=== PATIENT | male | born 1970 | race Caucasian/White ===

== ENCOUNTER 2017-02-04 05:16 | Emergency (ER) | payer OTHER ==
[~2017-02-04] VITALS: Ht 175.3 cm; Wt 116.1 kg
--- NOTE | 2017-02-04 06:31 | PHYS DOC ---
Past History Past Medical History: High Cholesterol, Hypertension, Other Past Surgical History: Other Alcohol Use: None Social History Narrative: Hx of IV drug use, clean 10 yrs Adult General Chief Complaint Chief Complaint: FEVER HPI HPI Patient is a 46-year-old male brought from the correctional facility with the complaint of fever and chills. The patient and felt great yesterday, started feeling worse last night, then he developed an episode of shaking chills at about 11 PM. He had chills and sweats during the night and had his temperature checked earlier this morning and it was 103. He was sent here for evaluation. Patient states he has a frontal headache. Denies sore throat. He's had a little cough for about 2 days, he didn't think much of it. He is not short of air. No nausea or vomiting. He states for 11 months he has had about 3 loose stools a day, sometimes with a small amount of blood and sometimes with a larger amount of blood. This has not changed recently. He denies abdominal pain. Denies any abscess on his skin. He does have the slightly itchy rash on the right mid abdomen to these had since September. Patient states he takes Lasix daily, also states he's had reactive airway disease since he was a kid and takes breathing treatments. He does not feel like he needs a breathing treatment right now. He was not given anything for his fever. Review of Systems Review of Systems Constitutional: As in history of present illness Eyes: Denies change in visual acuity, redness, or eye pain [] HENT: He has had some nasal congestion for 1-2 days Respiratory: As in history of present illness Cardiovascular: Denies chest pain GI: Denies abdominal pain, nausea, vomiting,, stool as in history of present illness : Denies dysuria or hematuria [] Musculoskeletal: He has some chronic back pain issues Integument: As in history of present illness. He also complains of a area that bulges on his right lower leg that is worse when he stands up, for a few months , he was told it was a "cyst" Neurologic: Denies focal weakness or sensory changes [] Endocrine: Denies polyuria or polydipsia [] Current Medications Current Medications Current Medications Medications (Trade) Dose Ordered Sig/Tori Start Time Stop Time Status Last Admin Dose Admin Acetaminophen (Tylenol) 1,000 mg 1X ONCE 02/04/17 06:30 6/10/17 06:31 UNV Ibuprofen (Motrin) 800 mg 1X ONCE 02/04/17 06:30 02/04/17 06:31 UNV Physical Exam Physical Exam Constitutional: Well developed, well nourished, no acute distress, non-toxic appearance. Alert, mentating normally, no distress whatsoever, no cough or dyspnea. HENT: Normocephalic, atraumatic, bilateral external ears normal, oropharynx moist, no oral exudates, nose normal. Tonsils not enlarged with no erythema or exudates. Eyes: EOMI, conjunctiva normal, no discharge. [] Neck: Normal range of motion, supple, no stridor. [] Cardiovascular:Heart rate regular rhythm, no murmur [] Lungs & Thorax: Bilateral breath sounds clear to auscultation , no wheezes, no prolongation of expiratory phase Abdomen: Bowel sounds normal, soft, no tenderness, no masses, no pulsatile masses. [] Skin: Warm, dry, no erythema, no areas of abscess. There is a area of rash on the right mid abdominal wall approximately 10 x 10 cm that is nonspecific in appearance. It is mildly red, mildly palpable but not significantly raised, no vesicles or pustules, nonspecific in appearance. Back: No tenderness, no CVA tenderness. [] Extremities: No tenderness, no cyanosis, no clubbing, ROM intact, no edema. Right anterior lower leg about two thirds [address] the way down, when the patient flexes his ankle, has a "bulge" appear approximately 2 cm in diameter, that appears to be a small herniation through the muscle fascia. It is not red or tender, does not appear to be acute. Neurologic: Alert and oriented X 3, normal motor function, normal sensory function, no focal deficits noted. [] Psychologic: Affect normal, judgement normal, mood normal. [] Current Patient Data Vital Signs Vital Signs Date Time Temp Pulse Resp B/P (MAP) Pulse Ox O2 Delivery O2 Flow Rate FiO2 02/04/17 05:20 99.1 104 20 96 Room Air EKG EKG [] Radiology/Procedures Radiology/Procedures Two-view chest x-ray read by me. No acute cardiopulmonary abnormality. [] Course & Med Decision Making Course & Med Decision Making Pertinent Labs and Imaging studies reviewed. (See chart for details) 46-year-old man in good health presents from the correctional facility with fever. Really no localizing signs or symptoms elicited on exam and history. I discussed with the patient that we will treat his fever and get a chest x-ray, urinalysis, flu swab to look for potential sources of fever. He looks very nontoxic and discussed with him that it is likely viral. Chest x-ray clear, flu swab negative, urinalysis negative. Patient rested comfortably watching TV in the ED. I discussed with him treatment of fever as likely viral. He also asked for something for the rash on his abdominal wall that he's had since September, we will try an antifungal. [] Dragon Disclaimer Dragon Disclaimer This chart was dictated in whole or in part using Voice Recognition software in a busy, high-work load, and often noisy Emergency Department environment. It may contain unintended and wholly unrecognized errors or omissions. Departure Departure: Impression: Primary Impression: Fever and chills Additional Impressions: Acute viral syndrome Rash and nonspecific skin eruption Referrals: FELICIANO DOSHI MSN, RACE STARTER (PCP) Patient Instructions: Fever, Adult Additional Instructions: As we discussed, we did not find a cause for your fever, and I suspect it is likely from a virus. Some fevers from viruses last a day, some last a week. It' s impossible to predict. Rest, drink plenty of fluids. For fever, ibuprofen 800 mg every 8 hours. Acetaminophen 1000 mg every 6-8 hours. These may be taken at the same time, they do not interact with each other. You had a dose of both medications about 6:30 this morning. For rash on the abdominal wall, we will try a medicine for skin fungus. Scripts Clotrimazole/Betamethasone Dip (CLOTRIMAZOLE-BETAMETHASONE CRM) 15 Gm Cream..g. 1 JEANA TP BID, #30 GM 1 Refill Prov: KAMRAN RIVERA MD 02/04/17 Problem Qualifiers KAMRAN RIVERA MD Feb 04, 2017 06:31
[2017-02-04 06:54] VITALS: BP 157/86
[2017-02-04 06:58] LABS: INFLUENZA A PATIENT NEGATIVE (NEGATIVE); INFLUENZA B PATIENT NEGATIVE (NEGATIVE)
[2017-02-04] MEDS ORDERED: ACETAMINOPHEN 500 MG TABLET PO ONE (07:00)
[2017-02-04] MEDS ORDERED: IBUPROFEN 800 MG TABLET. PO ONE (07:00)
[2017-02-04 07:40] LABS: BILIRUBIN,URINE NEG (NEG); CLARITY,URINE CLEAR; COLOR,URINE YELLOW; GLUCOSE,URINE NEG (NEG)
[2017-02-04 07:41] LABS: BACTERIA,URINE 0 /HPF (0-FEW); NITRITE,URINE NEG (NEG); RBC,URINE 0 /HPF (0-2); SQUAMOUS EPITHELIAL CELL,UR OCC /LPF; UROBILINOGEN,URINE 0.2 mg/dL (0.2 mg/dL); WBC,URINE 0 /HPF (0-4)
--- NOTE | 2017-02-04 07:48 | RAD ---
Indication fever and cough. PA and lateral views of the chest were obtained. No prior imaging is available. The heart, pulmonary vessels and mediastinum appear normal. The lungs are clear. There is widening and offset at the right AC joint. This likely reflects an old injury. Clinical correlation advised IMPRESSION: No acute or focal process seen in the chest
[2017-02-04] MEDS ORDERED: CLOT15CR5 TP (08:03)
== END 2017-02-04 08:07 | disposition home or self-care (01) ==
LOC: ER 05:16
DX: B34.9 Viral infection, unspecified (principal); R21 Rash and other nonspecific skin eruption; E78.00 Pure hypercholesterolemia, unspecified; I10 Essential (primary) hypertension
CPT/HCPCS: 71020; 81001; 87804; 99285-25

== ENCOUNTER 2019-07-03 16:13 | Emergency (ER) | payer OTHER ==
[~2019-07-03] VITALS: Ht 172.7 cm; Wt 116.0 kg
[~2019-07-03 16:13] MED LIST: CLOT15CR5 TP
[2019-07-03 16:15] VITALS: BP 147/97
--- NOTE | 2019-07-03 16:40 | PHYS DOC ---
Past History Past Medical History: Asthma, High Cholesterol, Hypertension, Prostatitis, Other Past Surgical History: Other Alcohol Use: None Drug Use: None Adult General Chief Complaint Chief Complaint: CELLULITIS HPI HPI patient is a 48-year-old male who presents to the emergency department for evaluation. He states over the past 2 days, he has had some pain in his right leg, on the anterior and medial aspect of his leg as well as the anterior/lateral aspect of his leg, and has developed some erythema and discomfort which appears to be some lymphangitic streaking extending from the medial aspect of his knee, proximal to his distal to mid thigh. He states he did fall playing handball a few days ago, and sustained a superficial scrape/abrasion on the right lateral calf, and also had a tattoo on his posterior calf about 3 weeks ago. He did just take a bus ride from [place] back up to this area, where he was just released from alf. He takes a fluid pill as he has had problems with edema in his legs in the past, but is uncertain of the vein. He denies any shortness of breath, pleuritic pain, fevers, or chills. Palpation of the affected area worsens his pain. There are no alleviating factors to his symptoms. Patient's tetanus immunization is up-to-date. Review of Systems Review of Systems Constitutional: Denies fever or chills [] Eyes: Denies change in visual acuity, redness, or eye pain [] HENT: Denies nasal congestion or sore throat [] Respiratory: Denies cough or shortness of breath [] Cardiovascular:The patient denies any shortness of breath, chest pain, palpitations, or orthopnea[] GI: Denies abdominal pain, nausea, vomiting, bloody stools or diarrhea [] : Denies dysuria or hematuria [] Musculoskeletal: Denies back pain or joint pain [] Integument: Denies rash or skin lesions [] Neurologic: Denies headache, focal weakness or sensory changes [] Endocrine: Denies polyuria or polydipsia [] All other systems were reviewed and found to be within normal limits, except as documented in this note. Allergies Allergies Allergies Coded Allergies Type Severity Reaction Last Updated Verified No Known Drug Allergies 02/04/17 No Physical Exam Physical Exam PHYSICAL EXAM: CONSTITUTIONAL: Well developed, well nourished HEAD: normocephalic, atraumatic EENT: PERRL, EOMI. Conjunctivae normal color, sclerae non-icteric; moist mucous membranes. NECK: Supple, non-tender; no meningismus. LUNGS: Lungs CTA, breathing even and unlabored. Normal air movement. HEART: Regular rate and rhythm, no murmur CHEST: No deformity; non-tender ABDOMEN: The abdomen is soft, and non-tender, no masses or bruits. EXTREM: Normal ROM; no deformity, no calf tenderness. Normal pulses palpable in all extremities. There is 1+ left-sided pedal edema, and 2+ right lower extremity pedal edema. There is a superficial abrasion on the lateral aspect of the right lower leg just distal to the knee, there is some warmth and erythema in this area, with some tenderness to palpation along the medial distal thigh, and proximal lower leg, where the patient reports lymphangitic streaking is present. There is no definite palpable cord. NEURO: Alert; normal speech and cognition; CN's grossly intact; strength grossly intact without focal deficit. BACK: No CVA TTP. Current Patient Data Vital Signs Vital Signs Date Time Temp Pulse Resp B/P (MAP) Pulse Ox O2 Delivery O2 Flow Rate FiO2 07/03/19 16:15 97.7 87 20 97 Room Air 07/03/19 16:13 147/97 (114) Lab Results Laboratory Tests Test 07/03/19 18:20 White Blood Count 6.8 x10^3/uL Red Blood Count 4.92 x10^6/uL Hemoglobin 14.2 g/dL Hematocrit 42.4 % Mean Corpuscular Volume 86 fL Mean Corpuscular Hemoglobin 29 pg Mean Corpuscular Hemoglobin Concent 34 g/dL Red Cell Distribution Width 13.4 % Platelet Count 262 x10^3/uL Neutrophils (%) (Auto) 51 % Lymphocytes (%) (Auto) 31 % Monocytes (%) (Auto) 14 % Eosinophils (%) (Auto) 3 % Basophils (%) (Auto) 1 % Neutrophils # (Auto) 3.5 x10^3uL Lymphocytes # (Auto) 2.1 x10^3/uL Monocytes # (Auto) 1.0 x10^3/uL Eosinophils # (Auto) 0.2 x10^3/uL Basophils # (Auto) 0.1 x10^3/uL Sodium Level 140 mmol/L Potassium Level 3.4 mmol/L Chloride Level 100 mmol/L Carbon Dioxide Level 27 mmol/L Anion Gap 13 Blood Urea Nitrogen 20 mg/dL Creatinine 1.1 mg/dL Estimated GFR (Cockcroft-Gault) 72.1 BUN/Creatinine Ratio 18 Glucose Level 97 mg/dL Lactic Acid Level 0.7 mmol/L Calcium Level 9.3 mg/dL Total Bilirubin 0.5 mg/dL Aspartate Amino Transf (AST/SGOT) 28 U/L Alanine Aminotransferase (ALT/SGPT) 47 U/L Alkaline Phosphatase 54 U/L Troponin I Quantitative < 0.017 ng/mL WM-Ime-I-Type Natriuretic Peptide 12 pg/mL Total Protein 7.6 g/dL Albumin 4.0 g/dL Albumin/Globulin Ratio 1.1 Current Medications Medications (Trade) Dose Ordered Sig/Tori Route PRN Reason Start Time Stop Time Status Last Admin Dose Admin Doxycycline Hyclate (Vibra-Tab) 100 mg 1X ONCE PO 07/03/19 19:00 07/03/19 19:01 DC 07/03/19 18:59 Doxycycline Hyclate (Vibra-Tab) 100 mg STK-MED ONCE .ROUTE 07/03/19 18:56 07/03/19 18:58 DC EKG EKG Normal sinus rhythm with a normal rate, normal axis, normal intervals, there are no acute ischemic ST/T changes.[] Radiology/Procedures Radiology/Procedures PROCEDURE: VENOUS LOWER EXTREMITY RIGHT Right lower extremity venous Doppler dated 07/03/2019. No comparison available. Clinical data indication: Pain and swelling. FINDINGS: Grayscale, color-flow and spectral waveform analysis performed to include the deep venous system of the right lower extremity. There is normal compressibility, phasicity and augmentation of flow throughout. No filling defects are seen. IMPRESSION:. No evidence of right lower extremity deep vein thrombosis.[] Course & Med Decision Making Course & Med Decision Making Pertinent Labs and Imaging studies reviewed. (See chart for details) []Patient remains stable. I discussed test results, the need for close follow- up, and return precautions. Dragon Disclaimer Dragon Disclaimer This electronic medical record was generated, in whole or in part, using a voice recognition dictation system. Departure Departure: Impression: Primary Impression: Cellulitis Disposition: HOME, SELF-CARE Condition: STABLE Referrals: FELICIANO DOSHI MSN, MORTGAGE LOAN ORIGINATOR (PCP) Patient Instructions: Cellulitis Scripts Doxycycline Hyclate (DOXYCYCLINE HYCLATE) 100 Mg Capsule 1 CAP PO BID for -, #20 CAP Prov: AMINA GONZALEZ MD 07/03/19 AMINA GONZALEZ MD Jul 03, 2019 16:40
--- NOTE | 2019-07-03 17:09 | RAD ---
Right lower extremity venous Doppler dated 07/03/2019. No comparison available. Clinical data indication: Pain and swelling. FINDINGS: Grayscale, color-flow and spectral waveform analysis performed to include the deep venous system of the right lower extremity. There is normal compressibility, phasicity and augmentation of flow throughout. No filling defects are seen. IMPRESSION:. No evidence of right lower extremity deep vein thrombosis. Electronically signed by: Ramakrishna Hou MD (07/03/2019 5:06 PM) [facility]
--- NOTE | 2019-07-03 17:28 | EKG ---
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
[2019-07-03] MEDS ORDERED: DOXY100C2 PO (18:42)
[2019-07-03] MEDS ORDERED: DOXYCYCLINE HYCLATE 100 MG TABLET ONE (18:56)
[2019-07-03 18:59] LABS: BASO # 0.1 x10^3/uL (0.0-0.2); BASO % 1 % (0-3); EOS # 0.2 x10^3/uL (0.0-0.7); EOS % 3 % (0-3); HEMATOCRIT 42.4 % (39.0-53.0); HEMOGLOBIN 14.2 g/dL (13.0-17.5); LYMPH # 2.1 x10^3/uL (1.0-4.8); LYMPH % 31 % (24-48); MEAN CORPUSCULAR HEMOGLOBIN 29 pg (25-35); MEAN CORPUSCULAR HGB CONC 34 g/dL (31-37); MEAN CORPUSCULAR VOLUME 86 fL (79-100); MONO % 14 % (0-9); NEUT # 3.5 x10^3uL (1.8-7.7); NEUT % 51 % (31-73); PLATELET COUNT 262 x10^3/uL (140-400); RED BLOOD COUNT 4.92 x10^6/uL (4.30-5.70); RED CELL DISTRIBUTION WIDTH 13.4 % (11.5-14.5); WHITE BLOOD COUNT 6.8 x10^3/uL (4.0-11.0)
[2019-07-03] MEDS ORDERED: DOXYCYCLINE HYCLATE 100 MG TABLET PO ONE (19:00)
[2019-07-03 19:20] LABS: ALBUMIN/GLOBULIN RATIO 1.1 (1.0-1.7); CALCIUM 9.3 mg/dL (8.5-10.1); CREATININE 1.1 mg/dL (0.7-1.3); GFR 72.1; POTASSIUM 3.4 mmol/L (3.5-5.1); TOTAL BILIRUBIN 0.5 mg/dL (0.2-1.0); TOTAL PROTEIN 7.6 g/dL (6.4-8.2)
== END 2019-07-03 19:27 | disposition home or self-care (01) ==
LOC: ER 16:13
DX: S80.812A Abrasion, left lower leg, initial encounter (principal); L03.115 Cellulitis of right lower limb; J45.909 Unspecified asthma, uncomplicated; E78.00 Pure hypercholesterolemia, unspecified; I10 Essential (primary) hypertension; W18.39XA Other fall on same level, initial encounter; Y93.73 Activity, racquet and hand sports; Y92.89 Other specified places as the place of occurrence of the external cause; Y99.8 Other external cause status
CPT/HCPCS: 36415; 80053; 83605; 83880; 84484; 85025; 87040; 93005; 93971; 99285-25

== ENCOUNTER 2019-07-16 22:50 | Emergency (ER) | payer OTHER ==
[~2019-07-16] VITALS: Ht 172.7 cm; Wt 116.0 kg
[~2019-07-16 22:50] MED LIST changes: +DOXY100C2 PO
[2019-07-16] MEDS ORDERED: IPRATRPIUM/ALBUTEROL 0.5/2.5MG 3 ML NEBU. NEB ONE (23:00)
[2019-07-16] MEDS ORDERED: ALBUTEROL SULFATE 8GM INHALER. ONE (23:10)
[2019-07-16] MEDS ORDERED: ALBUTEROL SULFATE 8GM INHALER. INH ONE (23:15)
[2019-07-16 23:30] VITALS: BP 142/82
--- NOTE | 2019-07-17 06:58 | PHYS DOC ---
Past History Past Medical History: Asthma, High Cholesterol, Hypertension, Prostatitis, Other Past Surgical History: Other Alcohol Use: None Drug Use: None Adult General Chief Complaint Chief Complaint: SHORTNESS OF BREATH HPI HPI Patient is a [48-year-old male with history of asthma who presents with asthma exacerbation. Patient recently released from senior care and met with a primary care physician this morning. He is given prescriptions for albuterol will not receive them and him male for another week. Patient reports chest tightness and wheezing. He denies cough, sore throat, fever chills, nausea vomiting or sweats. Patient is a current smoker.[] Review of Systems Review of Systems Review symptoms as per history of present illness. All other review symptoms are negative. All other systems were reviewed and found to be within normal limits, except as documented in this note. Current Medications Current Medications Current Medications Medications (Trade) Dose Ordered Sig/Tori Start Time Stop Time Status Last Admin Dose Admin Albuterol Sulfate (Ventolin Hfa Inhaler) 60 puff STK-MED ONCE 07/16/19 23:10 07/16/19 23:53 DC Albuterol/ Ipratropium (Duoneb) 3 ml 1X ONCE 07/16/19 23:00 07/16/19 23:02 DC 07/16/19 23:00 3 ML Allergies Allergies Allergies Coded Allergies Type Severity Reaction Last Updated Verified No Known Drug Allergies 02/04/17 No Physical Exam Physical Exam Constitutional: Well developed, well nourished, no acute distress, non-toxic appearance. [] HENT: Normocephalic, atraumatic, bilateral external ears normal, oropharynx moist, no oral exudates, nose normal. [] Eyes: PERRLA, EOMI, conjunctiva normal, no discharge. [] Neck: Normal range of motion, no tenderness, supple, no stridor. [] Cardiovascular:Heart rate regular rhythm, no murmur [] Lungs & Thorax: Patient's nonlabored, mildly diminished bilaterally with faint inspiratory and expiratory wheezes.[] Abdomen: Bowel sounds normal, soft, no tenderness, no masses, no pulsatile masses. [] Skin: Warm, dry, no erythema, no rash. [] Back: No tenderness, no CVA tenderness. [] Extremities: No tenderness, no cyanosis, no clubbing, ROM intact, no edema. [] Neurologic: Alert and oriented X 3, normal motor function, normal sensory function, no focal deficits noted. [] Psychologic: Affect normal, judgement normal, mood normal. [] Current Patient Data Vital Signs Vital Signs Date Time Temp Pulse Resp B/P (MAP) Pulse Ox O2 Delivery O2 Flow Rate FiO2 07/16/19 23:30 92 18 142/82 (102) 95 Room Air EKG EKG [] Radiology/Procedures Radiology/Procedures [] Course & Med Decision Making Course & Med Decision Making Pertinent Labs and Imaging studies reviewed. (See chart for details) [Acute asthma exacerbation, mild intermittent. Symptoms improved with treatments. Inhaler use demonstrated and provided to patient prior to discharge. Return precautions reviewed.] Dragon Disclaimer Dragon Disclaimer This electronic medical record was generated, in whole or in part, using a voice recognition dictation system. Departure Departure: Impression: Primary Impression: Asthma attack Additional Impression: Dyspnea Disposition: HOME/RESIDENCE PRIOR TO ADM Condition: STABLE Patient Instructions: Asthma, Acute Bronchospasm Additional Instructions: Please take medications as directed and follow-up with your PCP. Problem Qualifiers TANISHA BECERRA DO Jul 17, 2019 06:58
== END 2019-07-16 23:43 | disposition home or self-care (01) ==
LOC: ER 22:50
DX: J45.901 Unspecified asthma with (acute) exacerbation (principal); E78.00 Pure hypercholesterolemia, unspecified; I10 Essential (primary) hypertension
CPT/HCPCS: 94640; 99284; J7613; J7620; 94664

== ENCOUNTER 2019-07-22 21:31 | Emergency (ER) | payer OTHER ==
[~2019-07-22] VITALS: Ht 172.7 cm; Wt 116.0 kg
[2019-07-22] MEDS ORDERED: ALBUTEROL SULFATE 2.5 MG/3 ML NEBU. ONE (21:53)
--- NOTE | 2019-07-22 21:56 | PHYS DOC ---
Past History Past Medical History: Asthma, High Cholesterol, Hypertension, Prostatitis, Other Past Surgical History: Other Alcohol Use: None Drug Use: None Adult General Chief Complaint Chief Complaint: ASTHMA HPI HPI 49-year-old male presents with shortness of breath. Patient has a history of reactive airway disease. He was seen in this emergency room about one week ago for asthma exacerbation. He was discharged on albuterol inhaler. The patient has continued to have shortness of breath with wheezing. The last couple of days it has gotten worse and he is out of his inhaler. He wasn't sure what else to do so he came to the emergency room. Patient denies chest pain, fever, or chills. Review of Systems Review of Systems Constitutional: Denies fever or chills [] Eyes: Denies change in visual acuity, redness, or eye pain [] HENT: Denies nasal congestion or sore throat [] Respiratory: Cough with shortness of breath [] Cardiovascular: No additional information not addressed in HPI [] GI: Denies abdominal pain, nausea, vomiting, bloody stools or diarrhea [] : Denies dysuria or hematuria [] Musculoskeletal: Denies back pain or joint pain [] Integument: Denies rash or skin lesions [] Neurologic: Denies headache, focal weakness or sensory changes [] Endocrine: Denies polyuria or polydipsia [] All other systems were reviewed and found to be within normal limits, except as documented in this note. Current Medications Current Medications Current Medications Medications (Trade) Dose Ordered Sig/Tori Start Time Stop Time Status Last Admin Dose Admin Albuterol Sulfate (Ventolin) 2.5 mg STK-MED ONCE 07/22/19 21:53 07/22/19 21:53 DC Allergies Allergies Allergies Coded Allergies Type Severity Reaction Last Updated Verified No Known Drug Allergies 02/04/17 No Physical Exam Physical Exam Constitutional: Well developed, obese, well nourished, no acute distress, non- toxic appearance. [] HENT: Normocephalic, atraumatic, bilateral external ears normal, oropharynx moist, no oral exudates, nose normal. [] Eyes: PERRLA, EOMI, conjunctiva normal, no discharge. [] Neck: Normal range of motion, no tenderness, supple, no stridor. [] Cardiovascular:Heart rate regular rhythm, no murmur [] Lungs & Thorax: Bilateral expiratory wheezing throughout[] Abdomen: Bowel sounds normal, soft, no tenderness, no masses, no pulsatile masses. [] Skin: Warm, dry, no erythema, no rash. [] Back: No tenderness, no CVA tenderness. [] Extremities: No tenderness, no cyanosis, no clubbing, ROM intact, no edema. [] Neurologic: Alert and oriented X 3, normal motor function, normal sensory function, no focal deficits noted. [] Psychologic: Affect normal, judgement normal, mood normal. [] EKG EKG [] Radiology/Procedures Radiology/Procedures [] Course & Med Decision Making Course & Med Decision Making Pertinent Labs and Imaging studies reviewed. (See chart for details) The patient was given one hour albuterol nebulizer treatment. He was also given 60 mg of prednisone as he preferred this to Solu-Medrol. His wheezing is improved. I will discharge the patient with an additional albuterol inhaler, a prescription for nebulizer, prescription for MDI, prescription for 3 more days of prednisone 60 mg daily. He is stable for discharge at this time. [] Dragon Disclaimer Dragon Disclaimer This electronic medical record was generated, in whole or in part, using a voice recognition dictation system. Departure Departure: Impression: Primary Impression: Asthma attack Disposition: 01 HOME, SELF-CARE Condition: IMPROVED Referrals: FELICIANO DOSHI MSN, HAMMER SHOP SUPERVISOR (PCP) Patient Instructions: Asthma Prevention-Brief, Asthma, Adult, [id number] Scripts Prednisone (PREDNISONE) 20 Mg Tablet 3 TAB PO DAILY for asthma for 3 Days, #9 TAB Prov: TANISHA SOTO DO 07/22/19 Albuterol Sulfate (PROAIR HFA INHALER) 8.5 Gm Hfa.aer.ad 2 PUFF IH PRN Q4-6HRS PRN for wheezing, #1 INHALER 0 Refills Generic substitution of albuterol sulfate MDI is authorized. Prov: TANISHA SOTO DO 07/22/19 Albuterol Sulfate (ALBUTEROL SULFATE CONC NEB SOLN) 2.5 Mg/0.5 Ml Vial.neb 1 VIAL NEB Q4HRS PRN for WHEEZING, #60 VIAL 1 Refill Please also provide a nebulizer for the patient. Prov: TANISHA SOTO DO 07/22/19 Problem Qualifiers Primary Impression: Asthma attack Asthma severity: mild Asthma persistence: intermittent Qualified Codes: J45.21 - Mild intermittent asthma with (acute) exacerbation TANISHA SOTO DO Jul 22, 2019 21:56
[2019-07-22] MEDS ORDERED: ALBUTEROL SULFATE 2.5 MG/3 ML NEBU. CONT NEB ONE (22:00)
[2019-07-22] MEDS ORDERED: methylPREDNISolone SOD SUCC PF 125 MG/2 ML VIAL. IV ONE (22:00)
[2019-07-22] MEDS ORDERED: ALBUTEROL SULFATE 8GM INHALER. INH ONE (22:00)
[2019-07-22] MEDS ORDERED: predniSONE 20 MG TABLET PO ONE (22:15)
[2019-07-22] MEDS ORDERED: ALBU2.5V14 NEB (22:36)
[2019-07-22] MEDS ORDERED: PRED20TA PO (22:36)
[2019-07-22] MEDS ORDERED: ALBU2.5V8 IH (22:36)
[2019-07-22 23:01] VITALS: BP 132/88
--- NOTE | 2019-07-23 06:47 | RAD ---
INDICATION: PT SAYS HE HAS CHRONIC AIRWAY DISEASE, shortness of breath COMPARISON: February 04, 2017 FINDINGS: 2 view of chest obtained. Mildly coarsened lung markings are again seen bilaterally. Postoperative changes to the right distal clavicle. Cardiac silhouette is nonenlarged. Degenerative changes of the spine. IMPRESSION: * No definite new region of focal airspace consolidation. Electronically signed by: Binh Orellana MD (07/23/2019 6:44 AM) [facility]
== END 2019-07-22 23:04 | disposition home or self-care (01) ==
LOC: ER 21:31
DX: J45.21 Mild intermittent asthma with (acute) exacerbation (principal); E78.00 Pure hypercholesterolemia, unspecified; I10 Essential (primary) hypertension
CPT/HCPCS: 71046; 94640; 94644; 99285; J7512; J7613; 94664

== ENCOUNTER 2019-07-24 04:09 | Emergency (ER) | payer OTHER ==
[~2019-07-24] VITALS: Ht 172.7 cm; Wt 116.0 kg
[~2019-07-24 04:09] MED LIST changes: +ALBU2.5V14 NEB; +ALBU2.5V8 IH; +PRED20TA PO
[2019-07-24] MEDS ORDERED: IPRATRPIUM/ALBUTEROL 0.5/2.5MG 3 ML NEBU. ONE (04:15)
[2019-07-24] MEDS ORDERED: ALBUTEROL SULFATE 2.5 MG/3 ML NEBU. ONE (04:17)
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
[2019-07-24 05:00] VITALS: BP 125/78
[2019-07-24] MEDS ORDERED: IPRATRPIUM/ALBUTEROL 0.5/2.5MG 3 ML NEBU. NEB ONE ×2 (05:00)
[2019-07-24] MEDS ORDERED: methylPREDNISolone SOD SUCC PF 125 MG/2 ML VIAL. IM ONE (05:00)
[2019-07-24] MEDS ORDERED: ALBUTEROL SULFATE 2.5 MG/3 ML NEBU. NEB ONE (05:00)
[2019-07-24] MEDS ORDERED: predniSONE 20 MG TABLET PO ONE (05:30)
[2019-07-24] MEDS ORDERED: ALBUTEROL SULFATE 8GM INHALER. INH ONE (05:30)
== END 2019-07-24 05:24 | disposition home or self-care (01) ==
LOC: ER 04:09
DX: J45.901 Unspecified asthma with (acute) exacerbation (principal); F41.9 Anxiety disorder, unspecified; E78.00 Pure hypercholesterolemia, unspecified; I10 Essential (primary) hypertension; F43.10 Post-traumatic stress disorder, unspecified
CPT/HCPCS: 94640; 96372; 99284; J2930; J7512; J7613; J7620

== ENCOUNTER 2019-08-13 01:05 | Emergency (ER) | payer OTHER ==
[~2019-08-13] VITALS: Ht 172.7 cm; Wt 116.0 kg
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
[2019-08-13] MEDS ORDERED: IPRA0.2S5 NEB (02:15)
[2019-08-13] MEDS ORDERED: PROM118S9 PO (02:15)
[2019-08-13] MEDS ORDERED: AZIT250T6 PO (02:15)
[2019-08-13] MEDS ORDERED: ALBUTEROL SULFATE 8GM INHALER. INH ONE (02:30)
[2019-08-13 02:50] VITALS: BP 129/71
--- NOTE | 2019-08-13 04:17 | RAD ---
CHEST PA LATERAL INDICATION: Cough, wheezing, congestion. COMPARISON STUDY: 07/22/2019. FINDINGS: Lungs: Normal lung volume. No pulmonary mass or consolidation. The tracheobronchial tree and hilar structures are normal. Pleura: No pleural effusion or pneumothorax. Heart and Mediastinum: The cardiomediastinal silhouette is normal. The great vessels of the thorax are normal. IMPRESSION: No consolidation. Electronically signed by: Fredy Ellington MD (08/13/2019 4:14 AM) [facility]
== END 2019-08-13 02:50 | disposition home or self-care (01) ==
LOC: ER 01:05
DX: J45.21 Mild intermittent asthma with (acute) exacerbation (principal); F41.9 Anxiety disorder, unspecified; E78.00 Pure hypercholesterolemia, unspecified; I10 Essential (primary) hypertension; F43.10 Post-traumatic stress disorder, unspecified
CPT/HCPCS: 71046; 94640; 99284; J7613; 94664

== ENCOUNTER 2019-08-26 23:15 | Inpatient (IN) | payer OTHER ==
[~2019-08-26] VITALS: Ht 172.7 cm; Wt 123.0 kg
[~2019-08-26 23:15] MED LIST changes: +AZIT250T6 PO; +IPRA0.2S5 NEB; +PROM118S9 PO
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
[2019-08-26] MEDS ORDERED: IPRATRPIUM/ALBUTEROL 0.5/2.5MG 3 ML NEBU. NEB ONE (23:30)
[2019-08-26] MEDS ORDERED: ALBUTEROL SULFATE 8GM INHALER. INH ONE (23:30)
[2019-08-26] MEDS ORDERED: IV RINGERS SOLUTION,LACTATED 1,000 ML IV SCH (23:55)
[2019-08-26] MEDS ORDERED: predniSONE 20 MG TABLET PO ONE (23:55)
[2019-08-27] MEDS ORDERED: ASPIRIN 81 MG TAB.CHEW PO ONE
[2019-08-27] MEDS ORDERED: ENOXAPARIN ** NOTE DOSE ** SYRINGE SQ ONE
[2019-08-27] MEDS ORDERED: CONTRAST GIVEN MC PRN (00:15)
[2019-08-27] MEDS ORDERED: IOHEXOL 350 MG/ML 100 ML VIAL. IV ONE (00:15)
[2019-08-27] MEDS ORDERED: KETOROLAC 30 MG/ML VIAL. IVP ONE (00:15)
--- NOTE | 2019-08-27 00:24 | EKG ---
[address] [address] Test Date: 2019-08-26 Test Time: 23:36:33 Pat Name: OCTAVIA PEREZ Department: Room: Gender: M Watch Inspector: : 1970 Requested By: WINNIE SONI Order Number: [id number] Reading MD: Measurements Intervals [place] Rate: 91 P: 59 MD: 134 QRS: 44 QRSD: 96 T: 42 QT: 346 QTc: 427 Interpretive Statements SINUS RHYTHM QRS(T) CONTOUR ABNORMALITY CONSISTENT WITH ANTEROSEPTAL INFARCT AGE UNDETERMINED ABNORMAL ECG RI6.01 No previous ECG available for comparison
[2019-08-27 01:20] LABS: BASO # 0.1 x10^3/uL (0.0-0.2); BASO % 1 % (0-3); EOS # 0.2 x10^3/uL (0.0-0.7); EOS % 2 % (0-3); HEMATOCRIT 38.6 % (39.0-53.0); HEMOGLOBIN 13.4 g/dL (13.0-17.5); LYMPH # 2.1 x10^3/uL (1.0-4.8); LYMPH % 20 % (24-48); MEAN CORPUSCULAR HEMOGLOBIN 29 pg (25-35); MEAN CORPUSCULAR HGB CONC 35 g/dL (31-37); MEAN CORPUSCULAR VOLUME 84 fL (79-100); MONO # 0.9 x10^3/uL (0.0-1.1); MONO % 8 % (0-9); NEUT # 7.5 x10^3uL (1.8-7.7); NEUT % 70 % (31-73); PLATELET COUNT 266 x10^3/uL (140-400); RED BLOOD COUNT 4.59 x10^6/uL (4.30-5.70); RED CELL DISTRIBUTION WIDTH 14.1 % (11.5-14.5); WHITE BLOOD COUNT 10.7 x10^3/uL (4.0-11.0)
[2019-08-27 01:30] LABS: CALCIUM 8.3 mg/dL (8.5-10.1); CREATININE 0.8 mg/dL (0.7-1.3); GFR 103.6; POTASSIUM 3.2 mmol/L (3.5-5.1)
[2019-08-27 01:45] LABS: ALBUMIN 3.1 g/dL (3.4-5.0); DIRECT BILIRUBIN 0.1 mg/dL (0.0-0.2); MAGNESIUM 1.9 mg/dL (1.8-2.4); TOTAL BILIRUBIN 0.3 mg/dL (0.2-1.0); TOTAL PROTEIN 6.8 g/dL (6.4-8.2)
--- NOTE | 2019-08-27 01:54 | RAD ---
Study: CT CHEST WITH CONTRAST - PULMONARY ANGIOGRAM History: Dyspnea. Chest pain. Comparison: None. Technique: Helical CT of the chest performed after the administration of 100 cc Omnipaque 350 intravenous contrast and timed for angiographic evaluation of the pulmonary arteries per PE protocol. Coronal and sagittal 3D MIP reformations were obtained. One or more of the following individualized dose reduction techniques were utilized for this examination: 1. Automated exposure control 2. Adjustment of the mA and/or kV according to patient size 3. Use of iterative reconstruction technique. Findings: No pulmonary embolism is identified. Normal aortic caliber. Patent great vessel origins. No calcific coronary artery disease is identified. No pericardial effusion or hiatal hernia. A few minimally prominent hilar lymph nodes are noted but do not meet pathologic criteria based on size. Trace bilateral pleural effusions. Apical predominant scattered groundglass opacities but also seen to a lesser degree within the upper aspect of both lower lobes as well as involving the right middle lobe and lingula. Scattered small nodules present as well. Clustered cystic foci seen within the upper aspect of the right lower lobe and lower aspect of the right upper lobe. The partially imaged spleen is prominent in size. No other abnormality seen at the upper abdomen. IMPRESSION: 1. No pulmonary embolism is identified or CT findings of right heart strain. 2. Scattered groundglass opacities and a few small nodules with an apical predominance. Scattered clustered cystic foci also seen within the right upper and lower lobes. The opacities are nonspecific but could represent an atypical infectious process in the appropriate clinical setting. Given the presence of mild nodularity, recommend follow-up CT such as in 3 months to document improvement. 3. Trace bilateral pleural effusions. 4. Nonspecific prominence of the partially imaged spleen. No pathologically enlarged lymph nodes seen throughout the imaged body. Electronically signed by: ZBIGNIEW LARES MD (08/27/2019 1:51 AM) [facility]
[2019-08-27 02:28] LABS: INFLUENZA A PATIENT NEGATIVE (NEGATIVE); INFLUENZA B PATIENT NEGATIVE (NEGATIVE)
[2019-08-27] MEDS ORDERED: AZITHROMYCIN 250 MG TABLET. PO ONE (02:30)
[2019-08-27] MEDS ORDERED: ONDANSETRON PF 4 MG/2 ML VIAL. IV PRN (02:45)
[2019-08-27] MEDS ORDERED: ACETAMINOPHEN 325 MG TABLET PO PRN (02:45)
[2019-08-27] MEDS ORDERED: IV NORMAL SALINE 50ML 50 ML ONE (03:09)
[2019-08-27] MEDS ORDERED: cefTRIAXone SODIUM 1 GM VIAL ONE (03:09)
[2019-08-27 03:36] VITALS: BP 148/96
--- NOTE | 2019-08-27 03:42 | NUR ---
The patient, OCTAVIA PEREZ, 49 y/o, M admitted by YAHAIRA VALENTINE MD, was given written information regarding hospital policies, unit procedures and contact persons. Valuables were checked and left with patient, per his request. PT was able to ambulate from EMS gurney to bed. Pt changed into a gown and VSS. Upon assessment pt is irritated with staff, and short. Pt states "I will be leaving in the morning, I have never been to a hospital like this." Pt changed into a gown and nurse at bedside obtaining health information at this time. Will CTM.
[2019-08-27] MEDS ORDERED: HYDR-2145 PO (03:47)
[2019-08-27] MEDS ORDERED: NAPR-683 PO (03:55)
[2019-08-27] MEDS ORDERED: AMOX1TAB11 PO (03:55)
[2019-08-27] MEDS ORDERED: POTA10TA5 PO (03:55)
[2019-08-27] MEDS ORDERED: POTASSIUM CHLORIDE 20 MEQ TABLET.ER. PO ONE (04:00)
[2019-08-27] MEDS ORDERED: ALBU2.5V8 INH (04:03)
[2019-08-27 04:04] LABS: BACTERIA,URINE 0 /HPF (0-FEW); BILIRUBIN,URINE NEG (NEG); CLARITY,URINE CLEAR; COLOR,URINE YELLOW; GLUCOSE,URINE NEG (NEG); NITRITE,URINE NEG (NEG); RBC,URINE 0 /HPF (0-2); SQUAMOUS EPITHELIAL CELL,UR OCC /LPF; UROBILINOGEN,URINE 0.2 mg/dL (0.2 mg/dL); WBC,URINE RARE /HPF (0-4)
[2019-08-27] MEDS ORDERED: RIZA10TA PO (04:06)
[2019-08-27] MEDS ORDERED: CIME400T PO (04:09)
[2019-08-27 04:16] LABS: BARBITURATES NEG (NEG); BENZODIAZEPINES NEG (NEG); CANNABINOIDS NEG (NEG); COCAINE NEG (NEG); METHADONE NEG (NEG); OPIATES NEG (NEG); PHENCYCLIDINE NEG (NEG)
[2019-08-27 04:17] LABS: AMPHETAMINE/METHAMPHETAMINE NEG (NEG)
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
--- NOTE | 2019-08-27 07:59 | RAD ---
CHEST PA LATERAL History: Dyspnea Comparison: 08/13/2019 two-view chest x-ray exam. Findings: Frontal and lateral views of the chest were obtained. The cardiomediastinal silhouette is normal. Pulmonary vasculature is normal. Patchy infiltrates involving the upper lung redmond noted. On the right. No pleural effusion or pneumothorax is seen. There is no acute bone abnormality. IMPRESSION: Upper lung field infiltrates are new since 08/09/2019. Follow-up to resolution recommended. Electronically signed by: Conner Low MD (08/27/2019 7:56 AM) [facility]
[2019-08-27] MEDS ORDERED: IPRATRPIUM/ALBUTEROL 0.5/2.5MG 3 ML NEBU. NEB SCH (08:00)
[2019-08-27] MEDS ORDERED: ASPIRIN 81 MG TAB.CHEW PO SCH (08:00)
--- NOTE | 2019-08-27 08:56 | NUR ---
pt wants to skip this tx, says he is breathing fine
[2019-08-27] MEDS ORDERED: LACTOBACILLUS RHAMNOSUS GG 1 CAPSULE. PO SCH (09:00)
[2019-08-27] MEDS ORDERED: methylPREDNISolone SOD SUCC PF 125 MG/2 ML VIAL. IV SCH (09:00)
[2019-08-27 11:49] VITALS: BP 125/77
--- NOTE | 2019-08-27 17:26 | CARD ---
MR#: [id number] Date of Study: 08/27/2019 Ordering Physician: HARRY FERNANDEZ, Referring Physician: HARRY FERNANDEZ, Tech: Davida Mauro RDCS APPROVED REPORT EXAM: Two-dimensional and M-mode echocardiogram with Doppler and color Doppler. Other Information Quality : Good INDICATION Dyspnea 2D DIMENSIONS RVDd2.8 (2.9-3.5cm)Left Atrium(2D)3.9 (1.6-4.0cm) IVSd0.9 (0.7-1.1cm)Aortic Root(2D)3.1 (2.0-3.7cm) LVDd5.9 (3.9-5.9cm)PWd0.9 (0.7-1.1cm) LVDs3.5 (2.5-4.0cm)FS (%) 30.0 % SV118.4 mlLVEF(%)60.0 (>50%) Aortic Valve AoV Peak Lauri.153.0cm/sAoV VTI26.2cm AO Peak GR.9.4mmHgAO Mean GR.5mmHg KOMAL (VTI)2.72cm2 Mitral Valve MV E Bnatdbhw582.1cm/sMV DECEL [id number] MV A Sxcykxmm78.4cm/sE/A Ratio1.2 LEFT VENTRICLE The left ventricle is normal size. There is normal left ventricular wall thickness. The left ventricu lar systolic function is normal and the ejection fraction is within normal range. The Ejection Fracti on is 55-60%. There is normal LV segmental wall motion. The left ventricular diastolic function and f illing is normal for age. RIGHT VENTRICLE The right ventricle is normal size. The right ventricular systolic function is normal. ATRIA The left atrium size is normal. The right atrium size is normal. The interatrial septum is intact wit h no evidence for an atrial septal defect or patent foramen ovale as noted on 2-D or Doppler imaging. AORTIC VALVE The aortic valve is normal in structure and function. Doppler and Color Flow revealed no significant aortic regurgitation. There is no significant aortic valvular stenosis. MITRAL VALVE The mitral valve is normal in structure and function. There is no evidence of mitral valve prolapse. There is no mitral valve stenosis. Doppler and Color Flow revealed no mitral valve regurgitation note d. TRICUSPID VALVE The tricuspid valve is normal in structure and function. Doppler and Color Flow revealed no tricuspid valve regurgitation noted. There is no tricuspid valve stenosis. PULMONIC VALVE The pulmonic valve is not well visualized. Doppler and Color Flow revealed no pulmonic valvular regur gitation. There is no pulmonic valvular stenosis. GREAT VESSELS The aortic root is normal in size. The ascending aorta is normal in size. The IVC is normal in size a nd collapses >50% with inspiration. PERICARDIAL EFFUSION There is no evidence of significant pericardial effusion. Critical Notification Critical Value: No <Conclusion> The left ventricle is normal size. The left ventricular systolic function is normal and the ejection fraction is within normal range. The Ejection Fraction is 55-60%. Doppler and Color Flow revealed no significant aortic regurgitation. There is no significant aortic valvular stenosis. Doppler and Color Flow revealed no mitral valve regurgitation noted. Doppler and Color Flow revealed no tricuspid valve regurgitation noted. Signed by : Michael Sullivan MD Electronically Approved : 08/27/2019 17:26:23
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
--- NOTE | 2019-08-27 18:17 | NUR ---
NURSING NOTES: PATIENT DISCHARGED TO HOME. ALL PATIENT BELONGINGS SENT WITH PATIENT. DISCHARGE INSTRUCTIONS GIVEN TO PATIENT WITH VERBAL UNDERSTANDING. NO CONCERNS AT THIS TIME.
[2019-08-28] MEDS ORDERED: AZITHROMYCIN 250 MG TABLET. PO SCH (09:00)
== END 2019-08-27 18:34 | disposition home or self-care (01) | DRG 195 ==
LOC: ER 23:15 → 1 SOUTH 08-27 02:00
PROVIDERS: ADMIT Internal Medicine; ATTEND Internal Medicine
DX: J18.9 Pneumonia, unspecified organism (principal); E78.00 Pure hypercholesterolemia, unspecified; E78.5 Hyperlipidemia, unspecified; E87.6 Hypokalemia; F43.10 Post-traumatic stress disorder, unspecified; F41.9 Anxiety disorder, unspecified; I10 Essential (primary) hypertension; J45.909 Unspecified asthma, uncomplicated; Z77.120 Contact with and (suspected) exposure to mold (toxic); Z87.891 Personal history of nicotine dependence
CPT/HCPCS: 36415; 71046; 71275; 80048; 80061; 80076; 80307; 81001; 82550; 83605; 83690; 83735; 83880; 84145; 84443; 84484; 85025; 85379; 85610; 87040; 87205; 87804; 93005; 93306; 94640; 96372; 96374; J0456; J0696; J1650; J1885; J2930; J7120; J7512; J7613; J7620; Q9967; 99285-25

== ENCOUNTER 2019-11-03 19:06 | Emergency (ER) | payer OTHER ==
[~2019-11-03] VITALS: Ht 175.3 cm; Wt 133.7 kg
[~2019-11-03 19:06] MED LIST changes: +ALBU2.5V8 INH; +AMOX1TAB11 PO; +CIME400T PO; +HYDR-2145 PO; +NAPR-683 PO; +POTA10TA5 PO; +RIZA10TA PO
[2019-11-03] MEDS ORDERED: IPRATRPIUM/ALBUTEROL 0.5/2.5MG 3 ML NEBU. ONE (19:13)
[2019-11-03] MEDS ORDERED: methylPREDNISolone SOD SUCC PF 125 MG/2 ML VIAL. IV ONE (19:30)
[2019-11-03] MEDS ORDERED: DOXYCYCLINE HYCLATE 100 MG in IV DEXTROSE 5% 100 ML IV ONE (19:30)
[2019-11-03] MEDS ORDERED: IPRATRPIUM/ALBUTEROL 0.5/2.5MG 3 ML NEBU. NEB ONE (19:30)
[2019-11-03] MEDS ORDERED: IV DEXTROSE 5% 100 ML IV ONE (19:40)
[2019-11-03] MEDS ORDERED: DOXYCYCLINE HYCLATE 100 MG VIAL IV ONE (19:40)
[2019-11-03 19:43] LABS: BASO # 0.1 x10^3/uL (0.0-0.2); BASO % 1 % (0-3); EOS # 0.3 x10^3/uL (0.0-0.7); EOS % 5 % (0-3); HEMATOCRIT 42.5 % (39.0-53.0); HEMOGLOBIN 14.3 g/dL (13.0-17.5); LYMPH # 1.9 x10^3/uL (1.0-4.8); LYMPH % 27 % (24-48); MEAN CORPUSCULAR HEMOGLOBIN 29 pg (25-35); MEAN CORPUSCULAR HGB CONC 34 g/dL (31-37); MEAN CORPUSCULAR VOLUME 87 fL (79-100); MONO # 0.7 x10^3/uL (0.0-1.1); MONO % 9 % (0-9); NEUT # 4.1 x10^3uL (1.8-7.7); NEUT % 58 % (31-73); PLATELET COUNT 268 x10^3/uL (140-400); RED BLOOD COUNT 4.87 x10^6/uL (4.30-5.70); RED CELL DISTRIBUTION WIDTH 15.2 % (11.5-14.5); WHITE BLOOD COUNT 7.2 x10^3/uL (4.0-11.0)
[2019-11-03 19:46] LABS: CALCIUM 8.7 mg/dL (8.5-10.1); CREATININE 1.1 mg/dL (0.7-1.3); GFR 71.8
[2019-11-03 19:58] LABS: ALBUMIN 3.4 g/dL (3.4-5.0); ALBUMIN/GLOBULIN RATIO 1.2 (1.0-1.7); TOTAL BILIRUBIN 0.2 mg/dL (0.2-1.0); TOTAL PROTEIN 6.3 g/dL (6.4-8.2)
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
--- NOTE | 2019-11-03 20:05 | RAD ---
CHEST AP ONLY History: Cough, chest pain Comparison: August 27, 2019 Findings: Single view of the chest is submitted. No lobar infiltrate is identified by radiograph. There is no dependent pleural fluid or pneumothorax. Mild linear opacity near the left lung base is stable, likely mild fibrotic change. Heart size is stable, within normal limits. There is again widening of the right acromioclavicular distance. Impression: 1. No significant infiltrate is identified by radiograph. Electronically signed by: Fredy Encarnacion MD (11/03/2019 8:02 PM) [id number]
[2019-11-03] MEDS ORDERED: DOXY100C2 PO (20:09)
[2019-11-03] MEDS ORDERED: PRED50TA PO (20:09)
[2019-11-03] MEDS ORDERED: ALBU2.5V8 IH (20:09)
[2019-11-03 21:00] VITALS: BP 158/78
[2019-11-03] MEDS ORDERED: NICO1PAT21 TP (21:07)
[2019-11-03] MEDS ORDERED: ALBUTEROL SULFATE 8GM INHALER. ONE (21:09)
[2019-11-03] MEDS ORDERED: ALBUTEROL SULFATE 8GM INHALER. INH ONE (21:15)
--- NOTE | 2019-11-03 21:17 | RAD ---
Exam: Bilateral lower extremity venous duplex study INDICATION: Leg swelling TECHNIQUE: Using a combination of real-time ultrasound imaging and color-flow and pulse Doppler imaging techniques along with graded compression and augmentation, duplex evaluation of the deep venous systems of bilateral lower extremity was performed. Multiple images were obtained. Findings: There is no sonographic evidence for deep venous thrombosis involving the visualized deep venous structures of the bilateral lower extremity. IMPRESSION: No acute DVT in the bilateral lower extremities. Electronically signed by: Kathe Sanchez MD (11/03/2019 9:14 PM) [id number]
--- NOTE | 2019-11-03 23:05 | EKG ---
[address] [address] Test Date: 2019-11-03 Test Time: 19:16:06 Pat Name: OCTAVIA PEREZ Department: Room: Gender: M [employer]: : 1970 Requested By: DASHAWN BAUGH Order Number: [id number] Reading MD: Measurements Intervals [place] Rate: 94 P: 69 HI: 128 QRS: 54 QRSD: 98 T: 32 QT: 338 QTc: 423 Interpretive Statements SINUS RHYTHM NORMAL ECG RI6.01 No previous ECG available for comparison
== END 2019-11-03 21:15 | disposition home or self-care (01) ==
LOC: ER 19:06
DX: J45.909 Unspecified asthma, uncomplicated (principal); R60.0 Localized edema; E78.00 Pure hypercholesterolemia, unspecified; I10 Essential (primary) hypertension
CPT/HCPCS: 36415; 71045; 80053; 83880; 84484; 85025; 93005; 93970; 94640; 96365; 96375; 99285; J2930; J3490; J7613; 96372; 94664

== ENCOUNTER → 2019-11-15 | Outpatient (CLI) | payer SELFPAY ==
[2019-11-03 21:00] VITALS: BP 158/78
[~2019-11-15] MED LIST changes: +NICO1PAT21 TP; +PRED50TA PO
[2019-11-15 17:49] LABS: BASO # 0.1 x10^3/uL (0.0-0.2); BASO % 1 % (0-3); EOS # 0.3 x10^3/uL (0.0-0.7); EOS % 2 % (0-3); HEMOGLOBIN 15.4 g/dL (13.0-17.5); LYMPH # 2.2 x10^3/uL (1.0-4.8); LYMPH % 19 % (24-48); MEAN CORPUSCULAR HEMOGLOBIN 30 pg (25-35); MEAN CORPUSCULAR HGB CONC 34 g/dL (31-37); MEAN CORPUSCULAR VOLUME 88 fL (79-100); MONO # 0.6 x10^3/uL (0.0-1.1); MONO % 5 % (0-9); NEUT # 8.3 x10^3uL (1.8-7.7); NEUT % 73 % (31-73); PLATELET COUNT 194 x10^3/uL (140-400); RED BLOOD COUNT 5.23 x10^6/uL (4.30-5.70); RED CELL DISTRIBUTION WIDTH 15.8 % (11.5-14.5); WHITE BLOOD COUNT 11.4 x10^3/uL (4.0-11.0)
[2019-11-15 18:07] LABS: ALBUMIN 4.2 g/dL (3.4-5.0); ALBUMIN/GLOBULIN RATIO 1.4 (1.0-1.7); CREATININE 1.2 mg/dL (0.7-1.3); GFR 64.9; POTASSIUM 3.4 mmol/L (3.5-5.1); TOTAL BILIRUBIN 0.4 mg/dL (0.2-1.0); TOTAL PROTEIN 7.1 g/dL (6.4-8.2)
[2019-11-15 18:56] LABS: PLATELET CLUMP PRESENT; PLT ESTIMATE ADEQUATE (ADEQUATE)
== END ==
LOC: LAB 16:54
PROVIDERS: ATTEND Family Medicine
DX: R60.9 Edema, unspecified (principal)
CPT/HCPCS: 36415; 80053; 83880; 84443; 85025

== ENCOUNTER 2021-12-24 05:24 | Emergency (ER) | payer OTHER ==
[~2021-12-24] VITALS: Ht 172.7 cm; Wt 125.0 kg
[~2021-12-24 05:24] MED LIST changes: -DOXY100C2 PO; +DOXY100C3 PO; +POTA-112 PO; -POTA10TA5 PO; +PROM118S10 PO; -PROM118S9 PO
[2021-12-24] MEDS ORDERED: IPRATRPIUM/ALBUTEROL 0.5/2.5MG 3 ML NEBU. NEB ONE ×2 (06:15)
[2021-12-24] MEDS ORDERED: methylPREDNISolone SOD SUCC PF 125 MG/2 ML VIAL. IM ONE (06:15)
[2021-12-24] MEDS ORDERED: PRED20TA PO (06:59)
[2021-12-24] MEDS ORDERED: ALBU2.5V8 INH (06:59)
[2021-12-24] MEDS ORDERED: ALBU2.5V5 NEB (06:59)
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
[2021-12-24 07:00] VITALS: BP 142/77
[2021-12-24] MEDS ORDERED: ALBUTEROL SULFATE 8GM INHALER. ONE (07:07)
[2021-12-24] MEDS ORDERED: ALBUTEROL SULFATE 8GM INHALER. INH ONE (07:15)
== END 2021-12-24 07:05 | disposition home or self-care (01) ==
LOC: ER 05:24
DX: J45.901 Unspecified asthma with (acute) exacerbation (principal); F41.9 Anxiety disorder, unspecified; E78.00 Pure hypercholesterolemia, unspecified; I10 Essential (primary) hypertension
CPT/HCPCS: 94640; 96372; 99284; J2930